=== PATIENT | female | born 1970 | race Hispanic/Latino ===

== ENCOUNTER 2017-03-17 17:01 | Inpatient (IN) | payer MEDICARE ==
[2017-03-17 17:01] VITALS: BMI 18.6
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
[2017-03-17 18:36] LABS: BLOOD UREA NITROGEN 15 mg/dl (7-17); GFR AFRICAN-AMERICAN > 60; GFR NON-AFRICAN AMERICAN > 60
[2017-03-17 18:37] LABS: ALB/GLOB RATIO 1.1 (1.0-2.1); ALBUMIN 4.2 g/dL (3.5-5.0); AST/SGOT 51 U/L (14-36); CALCIUM 8.8 mg/dL (8.4-10.2)
[2017-03-17 18:38] LABS: ALT/SGPT 38 U/L (9-52)
[2017-03-17 18:40] LABS: BASO % 0.6 % (0.0-2.0); EOS # 0.2 K/uL (0.0-0.7); EOS % 2.4 % (0.0-4.0); HEMOGLOBIN 10.7 g/dL (12.0-16.0); LYMPH # 1.1 K/uL (1.0-4.3); LYMPH % 15.7 % (20.0-40.0); MEAN CELL VOLUME 75.1 fl (81.0-99.0); MEAN CORPUSCULAR HEMOGLOBIN 23.4 pg (27.0-31.0); MEAN CORPUSCULAR HGB CONC 31.1 g/dL (33.0-37.0); MEAN PLATELET VOLUME 9.1 fl (7.2-11.7); MONO # 0.8 K/uL (0.0-0.8); MONO % 10.8 % (0.0-10.0); NEUT # 5.1 K/uL (1.8-7.0); NEUT % 70.5 % (50.0-75.0); NRBC % 0.2 % (0.0-0.0); RBC 4.57 Mil/uL (3.80-5.20); RED CELL DISTRIBUTION WIDTH 17.4 % (11.5-14.5); WHITE BLOOD COUNT 7.2 K/uL (4.8-10.8)
[2017-03-17 20:01] LABS: SQUAMOUS EPITHIAL 1 /hpf (0-5); URINE BACTERIA RARE (<OCC); URINE BILIRUBIN NEGATIVE (NEGATIVE); URINE BLOOD NEGATIVE (NEGATIVE); URINE CLARITY CLEAR (Clear); URINE COLOR STRAW (YELLOW); URINE GLUCOSE (UA) NEG (Normal); URINE LEUKOCYTE ESTERASE NEG Leu/uL (Negative); URINE NITRATE NEGATIVE (NEGATIVE); URINE PROTEIN NEGATIVE (NEGATIVE); URINE UROBILINOGEN 0.2-1.0 mg/dL (0.2-1.0)
[2017-03-17 20:11] LABS: BARBITURATES, UR NEGATIVE (NEGATIVE); BENZODIAZEPINES, UR NEGATIVE (NEGATIVE); OPIATES, UR NEGATIVE (NEGATIVE); PHENCYCLIDINE, UR NEGATIVE (NEGATIVE)
[2017-03-17 20:35] VITALS: O2SAT 98
[2017-03-17] MEDS ORDERED: Alum-Mag Hydrox-Simethicone Susp (30 mL) PO PRN (21:42)
[2017-03-17] MEDS ORDERED: Magnesium Hydroxide Susp 30 ml UD PO PRN (21:42)
[2017-03-17] MEDS ORDERED: DiphenhydrAMINE 50 mg/ml Inj IM PRN (21:42)
[2017-03-18] MEDS: Levothyroxine 25 MCG TAB PO SCH (06:42)
[2017-03-18 08:05] LABS: T4 9.68 ug/dl (5.5-11.0)
--- NOTE | 2017-03-18 09:49 | RAD ---
HISTORY: clearance COMPARISON: 04/01/2026 FINDINGS: LUNGS: No active pulmonary disease. PLEURA: No significant pleural effusion identified, no pneumothorax apparent. CARDIOVASCULAR: Normal. OSSEOUS STRUCTURES: No significant abnormalities. VISUALIZED UPPER ABDOMEN: Normal. OTHER FINDINGS: None. IMPRESSION: No active disease.
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
--- NOTE | 2017-03-18 20:07 | CP.PCM.CON ---
History of Present Illness - History of Present Illness History of Present Illness: Reason for Consult: per hospital protocol Chief Complaint: "i dont want to talk about it." HPI: 47 F PMH schizophrenia admitted for psychosis per chart review. Patient does not wish to go into detail regarding her admission. She denies any other symptoms at this time. HD stable. ROS: Per HPI, all other systems reviewed negative by me PMH: denies PSH: denies FH: denies SH: denies tobacco, etoh, ivdu ALLERGIES: NKDA MEDICATIONS: reviewed and as below Temp Pulse Resp BP Pulse Ox 96.6 F L 92 H 20 118/80 98 03/18/17 09:07 03/18/17 09:07 03/18/17 09:07 03/18/17 09:07 03/17/17 20:35 GENERAL APPEARANCE: Well developed, well nourished, alert and cooperative, and appears to be in no acute distress. HEENT: normocephalic, atraumatic PERRL, EOMI. Vision is grossly intact. NECK: Neck supple, non-tender without lymphadenopathy, masses or thyromegaly. CARDIAC: Normal S1 and S2. No S3, S4 or murmurs. Rhythm is regular. LUNGS: Clear to auscultation and percussion without rales, rhonchi, wheezing or diminished breath sounds. ABDOMEN: Positive bowel sounds. Soft, nondistended, nontender. No guarding or rebound. No masses. BACK: Examination of the spine reveals no spinal deformity, symmetry of spinal muscles, EXTREMITIES: No significant deformity or joint abnormality. No edema. NEUROLOGICAL: Strength and sensation symmetric and intact throughout. Reflexes 2 + throughout. SKIN: Skin normal color, texture and turgor with no lesions or eruptions. PSYCHIATRIC: The patient was oriented to person, place, and time. Normal affect. LABS: 03/17/17 18:12 03/17/17 18:08 ASSESSMENT AND PLAN 47 F PMH schizophrenia admitted for psychosis per chart review. Patient does not wish to go into detail regarding her admission. She denies any other symptoms at this time. HD stable. Schizophrenia management per psychiatry Past Patient History - Infectious Disease Hx of Infectious Diseases: None - Tetanus Immunizations Tetanus Immunization: Unknown - Past Medical History & Family History Past Medical History?: Yes - Past Social History Alcohol: None Drugs: Denies - CARDIAC Hx Cardiac Disorders: No Hx Hypertension: No - PULMONARY Hx Respiratory Disorders: No Hx Tuberculosis: No - NEUROLOGICAL Hx Neurological Disorder: No Hx Seizures: No - HEENT Hx HEENT Problems: No Hx Epistaxis: Yes - RENAL Hx Chronic Kidney Disease: No - ENDOCRINE/METABOLIC Hx Endocrine Disorders: Yes Hx Hypothyroidism: Yes - HEMATOLOGICAL/ONCOLOGICAL Hx Blood Disorders: No Hx Human Immunodeficiency Virus (HIV): No - INTEGUMENTARY Hx Dermatological Problems: No - MUSCULOSKELETAL/RHEUMATOLOGICAL Hx Musculoskeletal Disorders: No - GASTROINTESTINAL Hx Gastrointestinal Disorders: No - GENITOURINARY/GYNECOLOGICAL Hx Sexually Transmitted Disorders: No - PSYCHIATRIC Hx Bipolar Disorder: Yes Hx Emotional Abuse: No Hx Physical Abuse: No Hx Schizophrenia: Yes Hx Sexual Abuse: No Hx Substance Use: No - SURGICAL HISTORY Hx Surgeries: Yes Hx Appendectomy: Yes - ANESTHESIA Hx Anesthesia: Yes Hx Anesthesia Reactions: No Meds Allergies/Adverse Reactions: Allergies Allergy/AdvReac Type Severity Reaction Status Date / Time aspirin Allergy bleeding Verified 04/05/16 11:03 - Medications Medications: Current Medications Acetaminophen (Tylenol 325mg Tab) 650 mg PO Q4 PRN PRN Reason: Pain, moderate (4-7) Al Hydrox/Mg Hydrox/Simethicone (Maalox Plus 30 Ml) 30 ml PO Q4 PRN PRN Reason: Dyspepsia Benztropine Mesylate (Cogentin) 0.5 mg PO AMHS [facility] Last Admin: 03/18/17 11:25 Dose: 0.5 mg Diphenhydramine HCl (Benadryl) 50 mg IM Q6 PRN PRN Reason: Extrapyramidal S/S Unable PO Diphenhydramine HCl (Benadryl) 50 mg PO Q6 PRN PRN Reason: Extrapyramidal Symptoms Diphenhydramine HCl (Benadryl) 50 mg PO HS PRN PRN Reason: Sleep Last Admin: 03/17/17 21:55 Dose: 50 mg Haloperidol (Haldol) 5 mg PO Q4 PRN PRN Reason: Agitation Last Admin: 03/17/17 21:55 Dose: 5 mg Haloperidol Lactate (Haldol) 5 mg IM Q4 PRN PRN Reason: Agitation, Unable to Take PO Levothyroxine Sodium (Synthroid) 25 mcg PO DAILY@0630 [facility] Last Admin: 03/18/17 06:42 Dose: 25 mcg Lorazepam (Ativan) 2 mg IM Q4 PRN PRN Reason: Anxiety/Agitation,Unable PO Lorazepam (Ativan) 1 mg PO Q4 PRN PRN Reason: Anxiety/Agitation Last Admin: 03/17/17 23:20 Dose: 1 mg Lorazepam (Ativan) 0.5 mg PO AMHS [facility] Last Admin: 03/18/17 11:26 Dose: 0.5 mg Magnesium Hydroxide (Milk Of Magnesia) 30 ml PO HS PRN PRN Reason: Constipation Olanzapine (Zyprexa) 20 mg PO HS [facility] Sertraline HCl (Zoloft) 75 mg PO DAILY [facility] Last Admin: 03/18/17 11:25 Dose: 75 mg Results - Vital Signs Recent Vital Signs: Last Vital Signs Temp 96.6 F L 03/18/17 09:07 Pulse 92 H 03/18/17 09:07 Resp 20 03/18/17 09:07 BP 118/80 03/18/17 09:07 Pulse Ox 98 03/17/17 20:35 - Labs Result Diagrams: 03/17/17 18:12 03/17/17 18:08 Labs: Laboratory Results - last 24 hr 03/17/17 03/17/17 03/18/17 19:49 19:49 07:15 Hemoglobin A1c Triglycerides 69 Cholesterol 231 H LDL Cholesterol Direct 138 H HDL Cholesterol 55 Thyroxine (T4) 9.68 TSH 3rd Generation 9.47 H Urine Color Straw Urine Clarity Clear Urine pH 6.0 Ur Specific [place] < 1.005 Urine Protein Negative Urine Glucose (UA) Neg Urine Ketones Negative Urine Blood Negative Urine Nitrate Negative Urine Bilirubin Negative Urine Urobilinogen 0.2-1.0 Ur Leukocyte Esterase Neg Urine RBC (Auto) 2 Urine Microscopic WBC < 1 Ur Squamous Epith Cells 1 Urine Bacteria Rare Urine Opiates Screen Negative Urine Methadone Screen Negative Ur Barbiturates Screen Negative Ur Phencyclidine Scrn Negative Ur Amphetamines Screen Negative U Benzodiazepines Scrn Negative U Oth Cocaine Metabols Negative U Cannabinoids Screen Negative 03/18/17 07:15 Hemoglobin A1c 5.7 Triglycerides Cholesterol LDL Cholesterol Direct HDL Cholesterol Thyroxine (T4) TSH 3rd Generation Urine Color Urine Clarity Urine pH Ur Specific [place] Urine Protein Urine Glucose (UA) Urine Ketones Urine Blood Urine Nitrate Urine Bilirubin Urine Urobilinogen Ur Leukocyte Esterase Urine RBC (Auto) Urine Microscopic WBC Ur Squamous Epith Cells Urine Bacteria Urine Opiates Screen Urine Methadone Screen Ur Barbiturates Screen Ur Phencyclidine Scrn Ur Amphetamines Screen U Benzodiazepines Scrn U Oth Cocaine Metabols U Cannabinoids Screen
--- NOTE | 2017-03-19 06:11 | CARD ---
APPROVED REPORT EKG Measurement Heart [id number] MD [id number] <Conclusion> Normal sinus rhythm Normal ECG
[2017-03-19] MEDS: Levothyroxine 25 MCG TAB PO SCH (07:01)
--- NOTE | 2017-03-19 14:53 | PCM.PYCHPN ---
Psychiatric Progress Note - Psychiatric Progress Note Patient seen today, length of contact: discussed with team Patient Chief Complaint: i think i'm better Problems Identified/Issues Discussed: pt visible in milieu. she is irritable and somewhat grandiose. she is stating her sleep is much improved since coming here to the hospital. she denies medication side effects. Medication Change: No Medical Record Reviewed: Yes Mental Status Examination - Cognitive Function Orientation: Person, Place, Situation, Time Memory: Intact Attention: WNL Concentration: Poor Association: Loose Fund of Knowledge: WNL Decription of patient's judgement and insights: superficial insight - Mood Mood: Anxious, Other (irritable) - Affect Affect: Blunted - Formal Thought Process Formal Thought Process: Delusions, Paranoia, Loosening of associations Psychotic Thoughts and Behaviors: denies any a/v hallucinations - Suicidal Ideation Suicidal Ideation: No - Homicidal Ideation Homicidal Ideation: No Goal/Treatment Plan - Goal/Treatment Plan Need for Continued Stay: Remain at risks for inpatient hospitalization, Severe functional impairment Progress Toward Problem(s) and Goals/Treatment Plan: schizoaffective disorder, bipolar continue current treatment and medications disposition planning encourage participation in groups. Estimated Date of D/C: 03/25/17
[2017-03-20] MEDS: Levothyroxine 25 MCG TAB PO SCH (09:23)
[2017-03-20] MEDS: CETIRIZINE PO SCH (13:55)
[2017-03-20] MEDS: PSEUDOEPHEDRINE PO SCH (13:55)
--- NOTE | 2017-03-20 19:54 | PCM.PYCHPN ---
Psychiatric Progress Note - Psychiatric Progress Note Patient seen today, length of contact: discussed with team/chart reviewed Patient Chief Complaint: i was not feeling well Problems Identified/Issues Discussed: notes review pt is varied in terms of mood and affect from cooperative to irritable, labile and argumentative. pt has been reported to be seen in milieu and has been adherent with medications. Medical Problems: per chart Diagnostic Results: per psychiatry per medicine per nursing per social work per recreational therapy DSM 5 Symptoms Update: lability in mood psychosis Medication Change: No Medical Record Reviewed: Yes Mental Status Examination - Cognitive Function Orientation: Person, Place, Situation, Time Memory: Intact Attention: WNL Concentration: Poor Association: Loose Fund of Knowledge: WNL Decription of patient's judgement and insights: impaired - Mood Mood: Anxious, Other (irritable) - Affect Affect: Blunted - Formal Thought Process Formal Thought Process: Delusions, Paranoia, Loosening of associations - Suicidal Ideation Suicidal Ideation: No - Homicidal Ideation Homicidal Ideation: No Goal/Treatment Plan - Goal/Treatment Plan Need for Continued Stay: Remain at risks for inpatient hospitalization, Severe functional impairment Progress Toward Problem(s) and Goals/Treatment Plan: inpt milieu vital signs and clinical observation per protocol and per clinical status adjust medications per clinical status discharge planning in progress Estimated Date of D/C: 03/25/17 - Smoking Cessation Smoking Cessation Initiated: No Reason for not providing: deferred
[2017-03-21] MEDS: PSEUDOEPHEDRINE PO SCH (10:16)
[2017-03-21] MEDS: CETIRIZINE PO SCH (10:16)
--- NOTE | 2017-03-21 20:57 | PCM.PYCHPN ---
Psychiatric Progress Note - Psychiatric Progress Note Patient seen today, length of contact: discussed with team/chart reviewed Patient Chief Complaint: i was not feeling well Problems Identified/Issues Discussed: pt reports feeling calmer, staff pt is noted to be improving related decreased irritability, more conversive at times. pt speaks of requesting that team contact sister in am related to mother and asking sister to check on mother who reportedly has dementia. staff report pt is adherent with medications. Medical Problems: per chart Diagnostic Results: per psychiatry per medicine per nursing per social work per recreational therapy DSM 5 Symptoms Update: alteration in mood and cognition Medication Change: No Medical Record Reviewed: Yes Consults ordered or reviewed: pt being followed by hospitalist Mental Status Examination - Cognitive Function Orientation: Person, Place, Situation, Time Memory: Intact Attention: WNL Concentration: Poor Association: Loose Fund of Knowledge: WNL Decription of patient's judgement and insights: impaired - Mood Mood: Anxious, Other (irritable) - Affect Affect: Blunted - Formal Thought Process Formal Thought Process: Delusions, Paranoia, Loosening of associations - Suicidal Ideation Suicidal Ideation: No - Homicidal Ideation Homicidal Ideation: No Goal/Treatment Plan - Goal/Treatment Plan Need for Continued Stay: Remain at risks for inpatient hospitalization, Severe functional impairment Progress Toward Problem(s) and Goals/Treatment Plan: inpt milieu vital signs and clinical observation per protocol and per clinical status adjust medications per clinical status-per pt report and collaborated by staff pt appears to be improving discharge planning in progress Estimated Date of D/C: 03/25/17 - Smoking Cessation Smoking Cessation Initiated: No Reason for not providing: pt defers being smoking
[2017-03-22] MEDS: Levothyroxine 25 MCG TAB PO SCH (06:36)
[2017-03-22] MEDS: PSEUDOEPHEDRINE PO SCH (10:17)
[2017-03-22] MEDS: CETIRIZINE PO SCH (10:17)
--- NOTE | 2017-03-22 12:25 | PCM.PYCHPN ---
Psychiatric Progress Note - Psychiatric Progress Note Patient seen today, length of contact: discussed with team Patient Chief Complaint: i am feeling better Problems Identified/Issues Discussed: pt attending groups. denies medication side effects. thoughts more organized. no aggression or agitation. Medication Change: No Medical Record Reviewed: Yes Mental Status Examination - Cognitive Function Orientation: Person, Place, Situation, Time Memory: Intact Attention: WNL Concentration: Poor Association: Loose Fund of Knowledge: WNL Decription of patient's judgement and insights: fair - Mood Mood: Anxious, Other (irritable) - Affect Affect: Blunted - Speech Speech: Appropriate - Formal Thought Process Formal Thought Process: Paranoia Psychotic Thoughts and Behaviors: psychotic symptoms improved - Suicidal Ideation Suicidal Ideation: No - Homicidal Ideation Homicidal Ideation: No Goal/Treatment Plan - Goal/Treatment Plan Need for Continued Stay: Remain at risks for inpatient hospitalization, Severe functional impairment Progress Toward Problem(s) and Goals/Treatment Plan: schizoaffective disorder, bipolar continue current treatment and medications disposition planning encourage participation in groups. Estimated Date of D/C: 03/25/17
[2017-03-23] MEDS: Levothyroxine 25 MCG TAB PO SCH (06:30)
[2017-03-23] MEDS: CETIRIZINE PO SCH (08:27)
[2017-03-23] MEDS: PSEUDOEPHEDRINE PO SCH (08:27)
--- NOTE | 2017-03-23 13:49 | PCM.PYCHPN ---
Psychiatric Progress Note - Psychiatric Progress Note Patient seen today, length of contact: discussed with team Patient Chief Complaint: can my mom bring food Problems Identified/Issues Discussed: pt attending groups with good participation. pt is denying medication side effects. pt states she is feeling much better and is agreeing to aftercare. Medication Change: No Medical Record Reviewed: Yes Mental Status Examination - Cognitive Function Orientation: Person, Place, Situation, Time Memory: Intact Attention: WNL Concentration: WNL Association: WN Fund of Knowledge: [facility] Decription of patient's judgement and insights: fair - Mood Mood: Neutral - Affect Affect: Broad - Speech Speech: Appropriate - Formal Thought Process Formal Thought Process: No Impairment Psychotic Thoughts and Behaviors: psychotic symptoms improved - Suicidal Ideation Suicidal Ideation: No - Homicidal Ideation Homicidal Ideation: No Goal/Treatment Plan - Goal/Treatment Plan Need for Continued Stay: Remain at risks for inpatient hospitalization, Severe functional impairment Progress Toward Problem(s) and Goals/Treatment Plan: schizoaffective disorder, bipolar continue current treatment and medications disposition planning- discharge tomorrow encourage participation in groups. Estimated Date of D/C: 03/25/17
[2017-03-24] MEDS: Levothyroxine 25 MCG TAB PO SCH (06:47)
[2017-03-24] MEDS ORDERED: CETIRIZINE PO SCH (09:00)
[2017-03-24] MEDS ORDERED: PSEUDOEPHEDRINE PO SCH (09:00)
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
[2017-03-24 12:35] VITALS: BP 123/88; PULSE 93; RESP 20; TEMP 96.6
== END 2017-03-24 15:17 | disposition home or self-care (01) | DRG 885 ==
LOC: H.ER 17:01 → H.ERHOLD 19:02 → H.PSYCH 20:03 → H.ERHOLD 20:39 → H.PSYCH 21:15
PROVIDERS: ADMIT Psychiatry & Neurology Psychiatry; ATTEND Psychiatry & Neurology Psychiatry
PROC: GZHZZZZ Group Psychotherapy (ICD-10-PCS; principal; 2017-03-17)
PROC: GZ56ZZZ Individual Psychotherapy, Supportive (ICD-10-PCS; 2017-03-17)
DX: F25.0 Schizoaffective disorder, bipolar type (principal); Z91.19 Patient's noncompliance with other medical treatment and regimen; E03.9 Hypothyroidism, unspecified; E78.5 Hyperlipidemia, unspecified; Z88.6 Allergy status to analgesic agent